=== PATIENT | female | born 2005 | race Caucasian/White ===

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

== ENCOUNTER 2024-07-03 15:57 | Emergency (ER) | payer OTHER ==
--- NOTE | 2024-07-03 18:00 | ED ---
ENT HPI - General Source: patient, RN notes reviewed Mode of arrival: ambulatory Limitations: no limitations - History of Present Illness MD complaint: sore throat <Olga Dooley - Last Filed: 07/03/24 23:55> <Rajiv Clifford - Last Filed: 07/11/24 19:40> - General Chief complaint: ENT Stated complaint: Sore throat - History of Present Illness Initial comments: Patient is a 18-year-old female presenting with 3 days of worsening sore throat, fatigue, body aches. She states that about a month ago she was diagnosed with mono and her symptoms were improving but over the last 3 days they have returned and worsened. She reports that this morning she took her temperature and it was 102 F so she took Tylenol and came here. She is also reporting right-sided cervical lymphadenopathy for which she was given a prednisone taper pack by urgent care 2 days ago. She reports lightheadedness, nausea, abdominal pain, nonproductive cough. She denies any sick contacts. (Olga Dooley) - Related Data Home Medications Medication Instructions Recorded Confirmed Cetirizine HCl [Zyrtec] 10 mg PO DAILY 12/03/22 06/11/23 Cholecalciferol [Vitamin D3 (25 50 mcg PO DAILY 12/03/22 06/11/23 Mcg = 1000 Iu)] Clotrimazole [Clotrimazole AF] 1 applic TOPICAL BID PRN 12/03/22 06/11/23 FLUoxetine HCL [PROzac] 20 mg PO DAILY 12/03/22 06/11/23 Hydrocortisone Cream 1 applic TOPICAL BID PRN 12/03/22 06/11/23 [Hydrocortisone 2.5% Cream] norgestimate-ethinyl estradioL 1 tab PO DAILY 12/03/22 06/11/23 [Sprintec 28 Day Tablet] Previous Rx's Medication Instructions Recorded Lidocaine 4% Patch 1 patch TOPICAL DAILY #30 patch 11/15/23 Ondansetron Odt [Zofran Odt] 4 mg PO Q8HR PRN #10 tab 11/15/23 Famotidine [Pepcid] 20 mg PO BID #28 tablet 11/17/23 Ondansetron Odt [Zofran Odt] 4 mg PO Q8HR PRN #10 tab 11/17/23 Sulfamethox-Tmp 800-160Mg [Bactrim 1 tab PO Q12HR #20 tab 03/28/24 DS 800-160 mg] Azithromycin [Zithromax] 500 mg PO DAILY 5 Days #5 tab 07/03/24 Allergies Allergy/AdvReac Type Severity Reaction Status Date / Time amoxicillin Allergy Itching Verified 07/03/24 16:15 Review of Systems ROS Other: All systems not noted in ROS Statement are negative. <Olga Dooley - Last Filed: 07/03/24 23:55> ROS Other: All systems not noted in ROS Statement are negative. <Rajiv Clifford - Last Filed: 07/11/24 19:40> ROS Statement: Those systems with pertinent positive or pertinent negative responses have been documented in the HPI. Past Medical History Past Medical History: No Reported History History of Any Multi-Drug Resistant Organisms: None Reported Past Surgical History: No Surgical Hx Reported Past Psychological History: Depression Smoking Status: Never smoker Past Alcohol Use History: None Reported Past Drug Use History: None Reported <Olga Dooley - Last Filed: 07/03/24 23:55> General Exam Limitations: no limitations General appearance: alert, in no apparent distress Head exam: Present: atraumatic Eye exam: Present: normal appearance ENT exam: Present: mucous membranes moist, TM's normal bilaterally, normal external ear exam, other (Erythematous oropharynx with exudates) Neck exam: Present: lymphadenopathy (Right-sided) Respiratory exam: Present: normal lung sounds bilaterally. Absent: respiratory distress, wheezes, rales, rhonchi Cardiovascular Exam: Present: regular rate, normal rhythm, normal heart sounds. Absent: systolic murmur, diastolic murmur <Olga Dooley - Last Filed: 07/03/24 23:55> Course Vital Signs 07/03/24 07/03/24 07/03/24 16:13 17:33 19:22 Temperature 100.9 F H 102.3 F H 103.2 F H Pulse Rate 128 H 120 H Respiratory 18 18 Rate Blood Pressure 102/60 87/52 O2 Sat by Pulse 98 100 Oximetry 07/03/24 07/03/24 07/03/24 21:14 21:56 23:06 Temperature 99.8 F H 98.3 F Pulse Rate 103 H 96 81 Respiratory 20 16 16 Rate Blood Pressure 93/55 88/55 93/60 O2 Sat by Pulse 97 96 99 Oximetry Medical Decision Making - Lab Data Result diagrams: 07/03/24 19:18 07/03/24 20:30 <Olga Dooley - Last Filed: 07/03/24 23:55> - Lab Data Result diagrams: 07/03/24 19:18 07/03/24 20:30 <Rajiv Clifford - Last Filed: 07/11/24 19:40> - Medical Decision Making Was pt. sent in by a medical professional or institution (, PA, [employer], urgent care, hospital, or senior living...) When possible be specific @ -No Did you speak to anyone other than the patient for history (EMS, parent, family, police, friend...)? What history was obtained from this source @ -No Did you review nursing and triage notes (agree or disagree)? Why? @ -I reviewed and agree with nursing and triage notes Were old charts reviewed (outside hosp., previous admission, EMS record, old EKG, old radiological studies, urgent care reports/EKG's, senior living records)? Report findings @ -No old charts were reviewed Differential Diagnosis? @ -Differential Fever: Pneumonia, viral URI, endocarditis, myocarditis, pericarditis, otitis, sinusitis, peritonsillar Abscess, retropharyngeal Abscess, epiglottitis, peritonitis, appendicitis, [place] cystitis, diverticulitis, hepatitis, colitis, UTI, PID, TOA, pyelonephritis, meningitis, encephalitis, pulmonary embolism, CVA, thyroid storm, pancreatitis, adrenal crisis, cavernous sinus thrombosis, this is not meant to be an all-inclusive list. EKG interpreted by me (3pts min.). @ -As above X-rays interpreted by me (1pt min.). @ -No evidence of abscess CT interpreted by me (1pt min.). @ -None done U/S interpreted by me (1pt. min.). @ -None done What testing was considered but not performed or refused? (CT, X-rays, U/S, labs)? Why? @ -None What meds were considered but not given or refused? Why? @ -None Did you discuss the management of the patient with other professionals (ilan maddox i.eTodd Regalado, PA, [employer], lab, RT, psych nurse, social scientist, mandrel press hand, teacher, property officer, lining caser)? Give summary @ -No Was smoking cessation discussed for >3mins.? @ -No Was critical care preformed (if so, how long)? @ -No Were there social determinants of health that impacted care today? How? (Homelessness, low income, unemployed, alcoholism, drug addiction, transportation, low edu. Level, literacy, decrease access to med. care, custodial, rehab)? @ -No Was there de-escalation of care discussed even if they declined (Discuss DNR or withdrawal of care, Hospice)? DNR status @ -No What co-morbidities impacted this encounter? (DM, HTN, Smoking, COPD, CAD, Cancer, CVA, ARF, Chemo, Hep., AIDS, mental health diagnosis, sleep apnea, morbid obesity)? @ -None Was patient admitted / discharged? Hospital course, mention meds given and route, prescriptions, significant lab abnormalities, going to OR and other pertinent info. @ -Is a 18-year-old female with no known past medical history presenting for worsening of sore throat for the last 3 days and fever of 102 F about a month ago and her symptoms were resolving. She went to urgent care on Wednesday was given a steroid pack for cervical lymphadenopathy. On arrival patient had fever of 102.3 F and had tonsillar exudates. A strep test was performed and was negative. Repeat blood pressure was 87/52. A CBC, CMP, magnesium, phosphate, CT soft tissue neck were obtained. Ofirmev given for fever. Repeat temperature 98.[address] soft tissue neck showed no definite evidence for abscess or significant abnormality. Patient was given 2.5 L normal saline. Patient BP improved. Patient reported feeling much better and was comfortable going home. Return precautions discussed. Patient should follow-up with PCP in 1 to 2 days. Undiagnosed new problem with uncertain prognosis? @ -No Drug Therapy requiring intensive monitoring for toxicity (Heparin, Nitro, Insulin, Cardizem)? @ -No Were any procedures done? @ -No Diagnosis/symptom? @ -Pharyngitis, fever Acute, or Chronic, or Acute on Chronic? @ -Acute Uncomplicated (without systemic symptoms) or Complicated (systemic symptoms)? @ -Uncomplicated Side effects of treatment? @ -No Exacerbation, Progression, or Severe Exacerbation? @ -No Poses a threat to life or bodily function? How? (Chest pain, [place], [place], pneumonia, PE, COPD, DKA, ARF, appy, cholecystitis, CVA, Diverticulitis, Homicidal, Suicidal, threat to staff... and all critical care pts) @ -No (Olga Dooley) I personally saw the patient and performed the critical portion of the service. I discussed the patient care with the Dr Dooley. I directed management, care planning and final disposition of the patient. This includes, but not limited to, review of all lab work, radiological studies, EKG's, consultations, vital signs, and nursing notes. EKG interpreted by me (3pts min.) @ [as above] X-Rays interpreted by me (1 pt min.) @ [none] CT interpreted by me ( 1pt min.) @ [Yes negative for acute disease] U/S interpreted by me (1 pt min.) @ [none] Critical care time of [0] minutes excluding separately billable procedures was spent in conjunction with critical care activities provided by the Resident and Attending simultaneously. I was present during [no procedures] for all critical portions of the procedure and as immediately available to furnish service during the entire procedure. (Rajiv Clifford) - Lab Data Lab Results 07/03/24 07/03/24 07/03/24 Range/Units 18:00 19:18 19:18 WBC 13.71 H (4.50-10.00) 10*3/uL RBC 4.74 (4.10-5.20) 10*6/uL Hgb 13.2 (12.0-15.0) g/dL Hct 39.5 (37.2-46.3) % MCV 83.3 (80.0-97.0) fL MCH 27.8 (27.0-32.0) pg MCHC 33.4 (32.0-37.0) g/dL Plt Count 301 (140-440) 10*3/uL MPV 10.0 (9.5-12.2) fL Immature Gran % (Auto) 0.5 % Neutrophils % 68.8 % Lymphocytes % 18.3 % Monocytes % 11.9 % Eosinophils % 0.0 % Basophils % 0.5 % Immature Gran # 0.07 H (0.00-0.04) 10*3/uL Neutrophils # 9.43 H (1.80-7.70) 10*3/uL Lymphocytes # 2.51 (0.90-5.00) 10*3/uL Monocytes # 1.63 H (0.20-1.00) 10*3/uL Eosinophils # 0.00 L (0.04-0.35) 10*3/uL Basophils # 0.07 (0.00-0.10) 10*3/uL PT 11.6 (10.0-12.5) sec INR 1.1 (<1.2) APTT 25.8 (22.0-30.0) sec Sodium (137-145) mmol/L Potassium (3.5-5.1) mmol/L Chloride (98-107) mmol/L Carbon Dioxide (22-30) mmol/L Anion Gap mmol/L BUN (7-17) mg/dL Creatinine (0.52-1.04) mg/dL Est GFR (CKD-EPI)AfAm (>60 ml/min/1.73 sqM) Est GFR (CKD-EPI)NonAf (>60 ml/min/1.73 sqM) Glucose (74-99) mg/dL Plasma Lactic Acid Efren (0.7-2.0) mmol/L Calcium (8.4-10.2) mg/dL Phosphorus (2.5-4.5) mg/dL Magnesium (1.6-2.3) mg/dL Total Bilirubin (0.2-1.3) mg/dL AST (14-36) U/L ALT (4-34) U/L Alkaline Phosphatase (38-126) U/L Total Protein (6.3-8.2) g/dL Albumin (3.5-5.0) g/dL Group A Strep (PCR) NOT DETECTED (Not Detectd) 07/03/24 07/03/24 Range/Units 19:18 20:30 WBC (4.50-10.00) 10*3/uL RBC (4.10-5.20) 10*6/uL Hgb (12.0-15.0) g/dL Hct (37.2-46.3) % MCV (80.0-97.0) fL MCH (27.0-32.0) pg MCHC (32.0-37.0) g/dL Plt Count (140-440) 10*3/uL MPV (9.5-12.2) fL Immature Gran % (Auto) % Neutrophils % % Lymphocytes % % Monocytes % % Eosinophils % % Basophils % % Immature Gran # (0.00-0.04) 10*3/uL Neutrophils # (1.80-7.70) 10*3/uL Lymphocytes # (0.90-5.00) 10*3/uL Monocytes # (0.20-1.00) 10*3/uL Eosinophils # (0.04-0.35) 10*3/uL Basophils # (0.00-0.10) 10*3/uL PT (10.0-12.5) sec INR (<1.2) APTT (22.0-30.0) sec Sodium 135 L (137-145) mmol/L Potassium 3.8 (3.5-5.1) mmol/L Chloride 106 (98-107) mmol/L Carbon Dioxide 23 (22-30) mmol/L Anion Gap 6 mmol/L BUN 12 (7-17) mg/dL Creatinine 0.66 (0.52-1.04) mg/dL Est GFR (CKD-EPI)AfAm >90 (>60 ml/min/1.73 sqM) Est GFR (CKD-EPI)NonAf >90 (>60 ml/min/1.73 sqM) Glucose 110 H (74-99) mg/dL Plasma Lactic Acid Efren 1.5 (0.7-2.0) mmol/L Calcium 7.6 L (8.4-10.2) mg/dL Phosphorus 2.8 (2.5-4.5) mg/dL Magnesium 1.6 (1.6-2.3) mg/dL Total Bilirubin 0.6 (0.2-1.3) mg/dL AST 15 (14-36) U/L ALT 10 (4-34) U/L Alkaline Phosphatase 69 (38-126) U/L Total Protein 6.1 L (6.3-8.2) g/dL Albumin 3.1 L (3.5-5.0) g/dL Group A Strep (PCR) (Not Detectd) Disposition Is patient prescribed a controlled substance at d/c from ED?: No Time of Disposition: 23:23 <Olga Dooley - Last Filed: 07/03/24 23:55> <Rajiv Clifford - Last Filed: 07/11/24 19:40> Clinical Impression: Pharyngitis, Fever Disposition: HOME SELF-CARE Condition: Stable Instructions (If sedation given, give patient instructions): Pharyngitis (ED) Additional Instructions: Every disease is a spectrum and a small chance still exists that a serious condition could develop, for this reason, please monitor yourself closely for new, changing or worsening symptoms, symptoms that persist beyond 48 hours, fever, inability to tolerate/keep down fluids or your medications, inability to follow up with outpatient providers as instructed and should you experience these symptoms or should you have any further concerns for your wellbeing please return to the ED or call 911 immediately. Please take your medications as prescribed. Your pain can be treated with ibuprofen and acetaminophen. You can take up to 400-600 mg of ibuprofen (Advil, Motrin) 3 times daily (every 8 hours) but can also use lower doses if this relieves your pain. Some people prefer naproxen (Aleve, Naprosyn) which can be taken in doses of 500 mg up to twice a day. Do not take both of these medicines together, and do not combine either with ketorolac (Toradol), meloxicam (Mobic), or indomethacin (Tivorbex). Some people can develop stomach discomfort with higher doses of either ibuprofen or naproxen, if this develops decrease your dose or stop taking it. If you need to take this dose daily for more than a week, please schedule an appointment for re-evaluation with your PCP. Please take these medications with food. You can take up to 1000 mg of acetaminophen (Tylenol) every 6 hours. Be careful as this is included in some medicines like Nyquil, [place], Percocet, Vicodin, STANBACK, Goody's Powders, and Excedrin. You can also use lidocaine patches for topical pain. You can purchase 4% patches over the counter at most drug stores. These can be helpful for pain from your muscles or bones. PLEASE call your primary care physician as soon as possible to arrange / discuss plan for followup appointment. Appointment in the next 1-3 days is strongly encouraged if possible. PLEASE let us know here before you leave if there is anything further we can do to be of any assistance. Take care and feel Better! Prescriptions: Azithromycin [Zithromax] 500 mg PO DAILY 5 Days #5 tab Referrals: Rajiv Khan MD [Primary Care Provider] - 1-2 days
[2024-07-03] MEDS: ACETAMINOPHEN IV (For NPO) 1,000 MG in EMPTY BAG 1 BAG IVPB STA (19:59)
[2024-07-03] MEDS: SODIUM CHLORIDE 0.9% 1,000 ML IV SCH (19:59)
[2024-07-03] MEDS: ONDANSETRON 4 MG/2 ML VIAL IVP STA (20:04)
[2024-07-03] MEDS: DEXAMETHASONE SOD PHOSPHATE 10 MG/ML 1 ML VIAL IVP STA (20:05)
[2024-07-03 20:08] LABS: Basophils # (A) 0.07 10*3/uL (0.00-0.10); Basophils % (A) 0.5 %; HCT 39.5 % (37.2-46.3); HGB 13.2 g/dL (12.0-15.0); Lymphocytes # (A) 2.51 10*3/uL (0.90-5.00); Lymphocytes % (A) 18.3 %; MCH 27.8 pg (27.0-32.0); MCHC 33.4 g/dL (32.0-37.0); MCV 83.3 fL (80.0-97.0); Monocytes # (A) 1.63 10*3/uL (0.20-1.00); Monocytes % (A) 11.9 %; Neutrophils # (A) 9.43 10*3/uL (1.80-7.70); Neutrophils % (A) 68.8 %; Platelet Count 301 10*3/uL (140-440); RBC 4.74 10*6/uL (4.10-5.20); RDW 14.2 % (11.5-14.5); WBC 13.71 10*3/uL (4.50-10.00)
[2024-07-03] MEDS: KETOROLAC 15 MG/ML 1 ML VIAL IVP STA (20:09)
[2024-07-03 20:17] LABS: INR 1.1 (<1.2); Prothrombin Time 11.6 sec (10.0-12.5)
[2024-07-03 20:18] LABS: Partial Thromboplastin Time 25.8 sec (22.0-30.0)
[2024-07-03] MEDS: AZITHROMYCIN 500 MG in SODIUM CHLORIDE 0.9% 250 ML IVPB STA (20:39)
[2024-07-03 21:06] LABS: ALT 10 U/L (4-34); AST 15 U/L (14-36); African American GFR (CKD) >90 (>60 ml/min/1.73 sqM); Albumin 3.1 g/dL (3.5-5.0); Alkaline Phosphatase 69 U/L (38-126); Anion Gap 6 mmol/L; Blood Urea Nitrogen 12 mg/dL (7-17); Calcium 7.6 mg/dL (8.4-10.2); Carbon Dioxide 23 mmol/L (22-30); Chloride 106 mmol/L (98-107); Glucose 110 mg/dL (74-99); Magnesium 1.6 mg/dL (1.6-2.3); Non-African American GFR(CKD) >90 (>60 ml/min/1.73 sqM); Phosphorus 2.8 mg/dL (2.5-4.5); Potassium 3.8 mmol/L (3.5-5.1); Sodium 135 mmol/L (137-145); Total Bilirubin 0.6 mg/dL (0.2-1.3); Total Protein 6.1 g/dL (6.3-8.2)
--- NOTE | 2024-07-03 21:29 | CT ---
EXAMINATION TYPE: CT soft tissue neck w con DATE OF EXAM: 07/03/2024 8:52 PM COMPARISON: None. CLINICAL INDICATION: Female, 18 years old with history of pain; PHH, neck pain TECHNIQUE: Standard enhanced CT of the neck. Axial sections with coronal and sagittal reformats were obtained. Contrast used:100ml mL of Isovue 300 with IV Contrast, (None if empty) Oral contrast used: (None if empty) CT DLP: 371.7 mGycm, Automated exposure control for dose reduction was used. FINDINGS: Brain: Visualized portions are grossly unremarkable. Orbits: Unremarkable Sinuses: Grossly unremarkable. Spaces of the neck: Clear and symmetric. Musculoskeletal: No acute osseous pathology. Ankylosis of the C2-C3 vertebral bodies. Lymph nodes: Multiple nonenlarged lymph nodes are seen along both anterior chains of the neck. Vascular structures: Visualized major arteries are patent without evidence of aneurysm. Thoracic Inlet/airway: Airway is patent. The lung apices are clear. Soft tissues/Thyroid: Thyroid and remainder of the soft tissues are unremarkable. Other: none. IMPRESSION: 1. No definite evidence for abscess or significant abnormality. 2. 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 [facility], , 07/03/2024 9:27 PM
[2024-07-03 21:57] VITALS: RESP 16
[2024-07-03] MEDS: SODIUM CHLORIDE 0.9% 1,000 ML IV ONE (22:18)
[2024-07-03 23:07] VITALS: BP 93/60; PULSE 81; TEMP 98.3
== END 2024-07-03 23:43 | disposition home or self-care (01) ==
LOC: EC 15:57
DX: J02.9 Acute pharyngitis, unspecified (principal); R50.9 Fever, unspecified; Z88.0 Allergy status to penicillin
CPT/HCPCS: 36415; 87651; 80053; 83605; 83735; 84100; 85025; 85610; 85730; 87040; 70491; 99284; 96365; 96366; 96367; 96375; J1100; J2405; J0456; J0131; J1885